=== PATIENT | female | born 1995 | race Caucasian/White ===

== ENCOUNTER 2017-03-15 20:27 | Emergency (ER) | payer BC ==
[~2017-03-15] VITALS: Ht 162.6 cm; Wt 57.3 kg
[2017-03-15 20:31] VITALS: BP 118/63; TEMP 97.8; O2SAT 98
[2017-03-15] MEDS ORDERED: SODIUM CHLOR 0.9% 1000 ML INJ 1,000 ML IV SCH (20:43)
[2017-03-15] MEDS ORDERED: SODIUM CHLORIDE 0.9% FLUSH 10 ML FLUSH IV FLUSH PRN (20:45)
--- NOTE | 2017-03-15 20:47 | PD ---
HPI Chief Complaint: Related Problem Time Seen by Provider: 20:43 Travel History International Travel<30 days: No Contact w/Intl Traveler<30days: No Traveled to known affect area: No History of Present Illness HPI 21-year-old female approximately 5 weeks , LMP February 05, here for evaluation of abdominal pain, nausea, vomiting, and diarrhea. Symptoms started earlier today. She is also having some generalized malaise. Abdominal pain is lower, cramping, intermittent. Currently she has no abdominal pain. She denies vaginal bleeding or discharge. She has an appointment with patient's librarian Dr. Jeffers for when she is 10 weeks . She has not yet had an ultrasound to confirm an IUP. She is feeling somewhat improved after having 3 episodes of vomiting today. [facility] Past Medical History ?: LMP: 02-05-17 Social History Tobacco Use: No Allergies-Medications (Allergen,Severity, Reaction): Coded Allergies: No Known Allergies (Unverified , 03/15/17) Reported Meds & Prescriptions Reported Meds & Active Scripts Active Reglan (Metoclopramide HCl) 5 Mg Tab 5 Mg PO BID Macrobid (Nitrofurantoin Monoh/Nitrofur Macro) 100 Mg Cap 100 Mg PO BID 5 Days Review of Systems Except as stated in HPI: all other systems reviewed are Neg Physical Exam Narrative GENERAL: Well-developed, well-nourished, comfortable, no acute distress. SKIN: Focused skin assessment warm/dry. No rash. HEAD: Atraumatic. Normocephalic. EYES: Pupils equal and round. No scleral icterus. No injection or drainage. ENT: Mucous membranes pink and dry. NECK: Trachea midline. No JVD. CARDIOVASCULAR: Regular rate and rhythm. RESPIRATORY: No accessory muscle use. Clear to auscultation. Breath sounds equal bilaterally. GASTROINTESTINAL: Abdomen soft, nondistended. Mild suprapubic and epigastric tenderness without peritoneal signs. Negative Coelho sign. No tenderness over McBurney's point. The rest of abdomen is soft and nontender. Normal bowel sounds. MUSCULOSKELETAL: No obvious deformities. No clubbing. No cyanosis. No edema. NEUROLOGICAL: Awake and alert. No obvious cranial nerve deficits. Motor grossly within normal limits. Normal speech. PSYCHIATRIC: Appropriate mood and affect; insight and judgment normal. Data Data Last Documented VS Vital Signs Date Time Temp Pulse Resp B/P Pulse Ox O2 Delivery O2 Flow Rate FiO2 03/15/17 23:04 90 18 98 03/15/17 22:34 100/56 Room Air 03/15/17 20:31 97.8 Orders Beta Hcg (Quant/Titer) (03/15/17 20:43) Complete Blood Count With Diff (03/15/17 20:43) Comprehensive Metabolic Panel (03/15/17 20:43) Lipase (03/15/17 20:43) Prothrombin Time / Inr (Pt) (03/15/17 20:43) Act Partial Throm Time (Ptt) (03/15/17 20:43) Urinalysis - C+S If Indicated (03/15/17 20:43) Iv Access Insert/Monitor (03/15/17 20:43) Ecg Monitoring (03/15/17 20:43) Oximetry (03/15/17 20:43) Sodium Chlor 0.9% 1000 Ml Inj (Ns 1000 M (03/15/17 20:43) Sodium Chloride 0.9% Flush (Ns Flush) (03/15/17 20:45) Ed Urine Pregnancytest Poc (03/15/17 20:43) Type And Screen (03/15/17 20:43) Urine Culture (03/15/17 21:15) Us Pelvis (Ques Pr/Ect)W Trans (03/15/17 ) Sodium Chlor 0.9% 1000 Ml Inj (Ns 1000 M (03/15/17 22:30) Metoclopramide Inj (Reglan Inj) (03/15/17 22:30) Nitrofurantoin Monohyd Macrocr (Macrobid (03/15/17 22:30) Labs Laboratory Tests Test 03/15/17 21:15 White Blood Count 10.3 TH/MM3 Red Blood Count 5.12 MIL/MM3 Hemoglobin 15.6 GM/DL Hematocrit 46.1 % Mean Corpuscular Volume 89.9 FL Mean Corpuscular Hemoglobin 30.4 PG Mean Corpuscular Hemoglobin 33.8 % Concent Red Cell Distribution Width 11.3 % Platelet Count 192 TH/MM3 Mean Platelet Volume 8.3 FL Neutrophils (%) (Auto) 88.4 % Lymphocytes (%) (Auto) 5.2 % Monocytes (%) (Auto) 4.6 % Eosinophils (%) (Auto) 0.5 % Basophils (%) (Auto) 1.3 % Neutrophils # (Auto) 9.1 TH/MM3 Lymphocytes # (Auto) 0.5 TH/MM3 Monocytes # (Auto) 0.5 TH/MM3 Eosinophils # (Auto) 0.1 TH/MM3 Basophils # (Auto) 0.1 TH/MM3 CBC Comment DIFF FINAL Differential Comment Prothrombin Time 10.9 SEC Prothromb Time International 1.0 RATIO Ratio Activated Partial 26.7 SEC Thromboplast Time Urine Color YELLOW Urine Turbidity SLIGHT Urine pH 5.5 Urine Specific [place] 1.024 Urine Protein NEG mg/dL Urine Glucose (UA) NEG mg/dL Urine Ketones 80 OR GREATER mg/dL Urine Occult Blood NEG Urine Nitrite NEG Urine Bilirubin NEG Urine Leukocyte Esterase NEG Urine WBC 0-2 /hpf Urine Squamous Epithelial 6-8 /hpf Cells Urine Bacteria MOD /hpf Urine Mucus MANY /lpf Microscopic Urinalysis Comment CULTURE INDICATED Sodium Level 140 MEQ/L Potassium Level 3.6 MEQ/L Chloride Level 106 MEQ/L Carbon Dioxide Level 23.8 MEQ/L Anion Gap 10 MEQ/L Blood Urea Nitrogen 10 MG/DL Creatinine 0.65 MG/DL Estimat Glomerular Filtration 114 ML/MIN Rate Random Glucose 89 MG/DL Calcium Level 9.0 MG/DL Total Bilirubin 0.6 MG/DL Aspartate Amino Transf 19 U/L (AST/SGOT) Alanine Aminotransferase 25 U/L (ALT/SGPT) Alkaline Phosphatase 53 U/L Total Protein 8.0 GM/DL Albumin 4.3 GM/DL Lipase 138 U/L Human Chorionic Gonadotropin, [address] MIU/ML Quant Blood Type O POSITIVE Antibody Screen NEGATIVE Blood Bank Comment [facility] Medical Decision Making Medical Screen Exam Complete: Yes Emergency Medical Condition: Yes Differential Diagnosis , ectopic , gastroenteritis, dehydration, UTI, cystitis, appendicitis less likely Narrative Course Initial vital signs show heart rate 113, blood pressure 118/63, pulse ox 98% on room air, oral temp of 97.8F. Repeat heart rate after a liter of normal saline IV was 90. CBC shows WBC 10.3, hemoglobin 15.6, hematocrit 46.1, platelets 192, neutrophils 88.4%. CMP is unremarkable. Lipase is 138. Beta hCG is 12,022. UA shows 80 years greater ketones, 8 squamous epithelial cells, moderate bacteria, many mucus, culture indicated. Patient will be started on Macrobid. Pelvic ultrasound: CONCLUSION: 1. Intrauterine with gestational age 5 weeks 6 days by crown-rump length and 5 weeks 3 days by gestational sac size. No heart rate identified at this time. Followup ultrasound recommended. 2. Trace free fluid. Probable corpus luteum cyst left ovary. Patient was made aware of all findings. She was given 2 L of normal saline IV and 5 mg of Reglan IV. She is feeling a lot better. I do not believe she has an acute intra-abdominal surgical process to warrant imaging at this time. She had [place] food yesterday, and is likely gave her gastroenteritis. She was provided a copy of her pelvic ultrasound report. She will be started on Macrobid for bacteriuria in . She is stable for discharge home with outpatient follow-up. She has an appointment with an DIRECTOR RELIGIOUS EDUCATION doctor in a few weeks. She was informed on when to return to the emergency department. She verbalizes understanding and agreement with plan. Diagnosis Primary Impression: Qualified Code: Z3A.01 - Less than 8 weeks gestation of Additional Impression: Bacteriuria during Referrals: Handle Assembler 1 week Primary Care Physician 3 days Additional Instructions: Follow-up with your primary care physician this week. Follow-up with your DIRECTOR RELIGIOUS EDUCATION doctor as scheduled. See hydrated with plenty of fluids. Return to the emergency department for worsening symptoms or any other concerns. Scripts Metoclopramide (Reglan)5 Mg Tab5 Mg PO BID #15 TAB Ref 0 Prov:Abraham Samayoa MD 03/15/17 Nitrofurantoin Monohydrate Macrocrystals (Macrobid)100 Mg [id number] Mg PO BID 5 Days Ref 0 Prov:Abraham Samayoa MD 03/15/17 Disposition: 01 DISCHARGE HOME Condition: Stable Abraham Samayoa MD Mar 15, 2017 20:46
[2017-03-15 20:48] VITALS: RESP 18; O2SAT 98
[2017-03-15 21:25] VITALS: BP 95/54; PULSE 90; RESP 18; O2SAT 98
[2017-03-15 21:34] LABS: AUTOMATED NEUTROPHIL # 9.1 TH/MM3 (1.8-7.7); BASOPHIL # 0.1 TH/MM3 (0-0.2); BASOPHIL % 1.3 % (0.0-2.0); EOSINOPHIL # 0.1 TH/MM3 (0-0.4); EOSINOPHIL % 0.5 % (0.0-4.0); HEMATOCRIT 46.1 % (35.0-46.0); HEMO FLAGS DIFF FINAL; LYMPH % 5.2 % (9.0-44.0); LYMPHOCYTE # 0.5 TH/MM3 (1.0-4.8); MEAN CELL VOLUME 89.9 FL (80.0-100.0); MEAN CORPUSCULAR HEMOGLOBIN 30.4 PG (27.0-34.0); MEAN CORPUSCULAR HGB CONC 33.8 % (32.0-36.0); MONO % 4.6 % (0.0-8.0); NEUT % 88.4 % (16.0-70.0); PLATELET COUNT 192 TH/MM3 (150-450); RED BLOOD COUNT 5.12 MIL/MM3 (4.00-5.30); RED CELL DISTRIBUTION WIDTH 11.3 % (11.6-17.2); WHITE BLOOD COUNT 10.3 TH/MM3 (4.0-11.0)
[2017-03-15 21:44] LABS: CHLORIDE 106 MEQ/L (98-107); POTASSIUM 3.6 MEQ/L (3.5-5.1); SODIUM (NA) 140 MEQ/L (136-145)
[2017-03-15 21:45] LABS: BLOOD, URINE NEG (NEG); GLUCOSE,URINE NEG (NEG); NITRITE,URINE NEG (NEG); PH, URINE 5.5 (5.0-8.5)
[2017-03-15 21:48] LABS: ANION GAP 10 MEQ/L (5-15); BICARBONATE 23.8 MEQ/L (21.0-32.0); BLOOD UREA NITROGEN 10 MG/DL (7-18)
[2017-03-15 21:51] LABS: ALT (GPT) 25 U/L (10-53); AST (GOT) 19 U/L (15-37); GLOMERULAR FILTRATION RATE 114 ML/MIN (>89)
[2017-03-15 21:52] LABS: TOTAL BILIRUBIN ADULT 0.6 MG/DL (0.2-1.0)
[2017-03-15 21:53] LABS: ALKALINE PHOSPHATASE 53 U/L (45-117); KETONE, URINE 80 OR GREATER mg/dL (NEG)
[2017-03-15 21:57] LABS: APTT (PATIENT) 26.7 SEC (24.3-30.1); MUCUS URINE MANY /lpf (OCC); PROTHROMBIN TIME - PATIENT 10.9 SEC (9.8-11.6); URINE COLOR YELLOW (YELLW/STRAW)
[2017-03-15 21:58] LABS: BACTERIA, URINE MOD /hpf; COMMENT (UR) CULTURE INDICATED; CULTURE IF INDICATED CULTURE INDICATED; WBC, URINE 0-2 /hpf (0-5)
[2017-03-15 22:08] LABS: BETA HCG QUANT 12022 MIU/ML (0-5)
[2017-03-15] MEDS ORDERED: SODIUM CHLOR 0.9% 1000 ML INJ 1,000 ML IV ONE (22:30)
[2017-03-15] MEDS ORDERED: METOCLOPRAMIDE HCL 10 MG/2 ML VIAL IV PUSH ONE (22:30)
[2017-03-15] MEDS ORDERED: NITROFURANTOIN MONOHYD MACROCR 100 MG CAP PO ONE (22:30)
[2017-03-15 22:34] VITALS: BP 100/56; PULSE 90; RESP 18; O2SAT 98
--- NOTE | 2017-03-15 22:47 | RADHPO ---
EXAM DATE/TIME: 03/15/2017 21:31 [place] COMPARISON: No previous studies available for comparison. INDICATIONS : Pelvic pain, nausea and vomiting. LAB(S): Beta-hC MEDICAL HISTORY : . Nausea. Vomiting. SURGICAL HISTORY : None. ENCOUNTER: Initial ACUITY: 1 day PAIN SCORE: 6/10 LOCATION: Bilateral pelvis MEASUREMENTS: UTERUS: 9.0 x 6.3 x 4.1 cm ENDOMETRIAL STRIPE: 17 mm RIGHT OVARY: 2.7 x 1.9 x 1.4 cm LEFT OVARY: 2.8 x 2.5 x 2.0 cm FREE FLUID: Yes Trace in posterior cul de sac. CROWN RUMP LENGTH: 0.3 cm = 5 WKS 6 DAYS FHR: Non visualized. BPM FINDINGS: Intrauterine is present with the crown-rump length characteristic of a 5 week 6 day gestati onal age. Yolk sac present. No heart rate identified. Right ovary unremarkable. Probable 2 cm corpus luteum cyst left ovary. Trace free fluid. CONCLUSION: 1. Intrauterine with gestational age 5 weeks 6 days by crown-rump length and 5 weeks 3 days by gestational sac size. No heart rate identified at this time. Followup ultrasound recommende d. 2. Trace free fluid. Probable corpus luteum cyst left ovary. Salvatore Gamez MD on March 15, 2017 at 22:42 Board Certified Radiologist. This report was verified electronically.
[2017-03-15] MEDS ORDERED: REGL5TAB PO (23:01)
[2017-03-15] MEDS ORDERED: MACR100C2 PO (23:01)
== END 2017-03-15 23:11 | disposition home or self-care (01) ==
LOC: PHED 20:27
DX: O26.891 Other specified pregnancy related conditions, first trimester (principal); R82.71 Bacteriuria; R19.7 Diarrhea, unspecified; R53.81 Other malaise; O21.9 Vomiting of pregnancy, unspecified; Z3A.01 Less than 8 weeks gestation of pregnancy
CPT/HCPCS: 76700; 76817; 80053; 81001; 83690; 84702; 84703; 85025; 85610; 85730; 86850; 86900; 86901; 87086; 96361; 96374; 99285; J2765; J7030

== ENCOUNTER 2017-05-07 12:23 | Emergency (ER) | payer BC ==
[~2017-05-07] VITALS: Ht 162.6 cm; Wt 57.0 kg
[~2017-05-07 12:23] MED LIST: MACR100C2 PO; REGL5TAB PO
[2017-05-07 12:26] VITALS: BP 124/57; PULSE 82; RESP 16; TEMP 97.1; O2SAT 99
[2017-05-07] MEDS ORDERED: PREN29TA PO (13:01)
[2017-05-07] MEDS ORDERED: SODIUM CHLOR 0.9% 1000 ML INJ 1,000 ML IV ONE (13:15)
[2017-05-07 13:19] LABS: AUTOMATED NEUTROPHIL # 5.6 TH/MM3 (1.8-7.7); BASOPHIL % 0.3 % (0.0-2.0); EOSINOPHIL # 0.1 TH/MM3 (0-0.4); EOSINOPHIL % 1.2 % (0.0-4.0); LYMPH % 17.3 % (9.0-44.0); LYMPHOCYTE # 1.3 TH/MM3 (1.0-4.8); MEAN CELL VOLUME 89.6 FL (80.0-100.0); MEAN CORPUSCULAR HGB CONC 33.5 % (32.0-36.0); MONO % 4.7 % (0.0-8.0); NEUT % 76.5 % (16.0-70.0); PLATELET COUNT 170 TH/MM3 (150-450); RED BLOOD COUNT 4.24 MIL/MM3 (4.00-5.30); RED CELL DISTRIBUTION WIDTH 12.3 % (11.6-17.2); WHITE BLOOD COUNT 7.3 TH/MM3 (4.0-11.0)
[2017-05-07 13:20] LABS: BLOOD, URINE LARGE (NEG); GLUCOSE,URINE NEG (NEG); KETONE, URINE NEG (NEG); NITRITE,URINE NEG (NEG)
[2017-05-07 13:20] LABS: HEMO FLAGS DIFF FINAL
[2017-05-07 13:23] LABS: URINE COLOR STRAW (YELLW/STRAW)
[2017-05-07 13:24] LABS: COMMENT (UR) CULT NOT INDICATED; CULTURE IF INDICATED CULT NOT INDICATED; SQUAMOUS EPITHELIAL CELL URINE 0-5 /hpf (0-5)
[2017-05-07 13:27] LABS: CHLORIDE 106 MEQ/L (98-107); POTASSIUM 3.5 MEQ/L (3.5-5.1); SODIUM (NA) 138 MEQ/L (136-145)
[2017-05-07 13:32] LABS: ANION GAP 8 MEQ/L (5-15); BLOOD UREA NITROGEN 5 MG/DL (7-18)
[2017-05-07 13:35] LABS: ALT (GPT) 15 U/L (10-53); AST (GOT) 16 U/L (15-37); GLOMERULAR FILTRATION RATE 174 ML/MIN (>89)
[2017-05-07 13:37] LABS: TOTAL BILIRUBIN ADULT 0.3 MG/DL (0.2-1.0)
[2017-05-07 13:38] LABS: ALKALINE PHOSPHATASE 41 U/L (45-117)
--- NOTE | 2017-05-07 13:46 | PD ---
HPI Chief Complaint: Related Problem Time Seen by Provider: 12:52 Travel History International Travel<30 days: No Contact w/Intl Traveler<30days: No Traveled to known affect area: No History of Present Illness HPI Patient is a 21-year-old female, 13 weeks , who comes in after an episode of vaginal bleeding. She says that she had bleeding this morning, as one episode, but it seemed like a lot of blood. She says since then it has slowed down. She denies any clots or passage of tissues. She said she's had some lower abdominal cramping. She denies any dysuria. She has seen her SCALLOP CUTTER , who has said that everything was fine at the , a few weeks ago. This is her first . She denies fever or chills. PFSH Past Medical History Diminished Hearing: No ?: LMP: 13 WEEKS Past Surgical History Tonsillectomy: Yes Social History Alcohol Use: No Tobacco Use: No Substance Use: No Allergies-Medications (Allergen,Severity, Reaction): Coded Allergies: No Known Allergies (Unverified , 05/07/17) Reported Meds & Prescriptions Reported Meds & Active Scripts Active Reported Plus Iron 29-1 mg ( Vit-Iron Carbonyl) 1 Tab Tab 1 Tab PO DAILY Review of Systems Except as stated in HPI: all other systems reviewed are Neg General / Constitutional: No: Fever, Chills Eyes: No: Blurred Vision HENT: No: Headaches, Lightheadedness Cardiovascular: No: Chest Pain or Discomfort Respiratory: No: Shortness of Breath Gastrointestinal: Positive: Abdominal Pain, No: Nausea, Vomiting Genitourinary: Positive: Vaginal Bleeding Musculoskeletal: No: Edema Skin: No Rash, No Change in Pigmentation Neurologic: No: Weakness, Dizziness Physical Exam Narrative GENERAL: Awake and alert, in no acute distress. SKIN: Focused skin assessment warm/dry. HEAD: Atraumatic. Normocephalic. EYES: Pupils equal and round. No scleral icterus. ENT: Mucous membranes pink and moist. NECK: Trachea midline. No JVD. CARDIOVASCULAR: Regular rate and rhythm. No murmur appreciated. RESPIRATORY: No accessory muscle use. Clear to auscultation. Breath sounds equal bilaterally. GASTROINTESTINAL: Abdomen soft, non-tender, nondistended. : Exam performed in the presence of a female nurse. Blood present in the vaginal vault. Minimal blood coming from the cervical os. No cervical lesions. Os is closed. MUSCULOSKELETAL: No obvious deformities. No clubbing. No cyanosis. No edema. NEUROLOGICAL: Awake and alert. No obvious cranial nerve deficits. Motor grossly within normal limits. Normal speech. PSYCHIATRIC: Appropriate mood and affect; insight and judgment normal. Data Data Last Documented VS Vital Signs Date Time Temp Pulse Resp B/P Pulse Ox O2 Delivery O2 Flow Rate FiO2 05/07/17 12:26 97.1 82 16 124/57 99 Orders Ed Poc Ultrasound (05/07/17 ) Complete Blood Count With Diff (05/07/17 13:03) Comprehensive Metabolic Panel (05/07/17 13:03) Urinalysis - C+S If Indicated (05/07/17 13:03) Iv Access Insert/Monitor (05/07/17 13:03) Sodium Chlor 0.9% 1000 Ml Inj (Ns 1000 M (05/07/17 13:15) Labs Laboratory Tests Test 05/07/17 05/07/17 13:05 13:09 White Blood Count 7.3 TH/MM3 Red Blood Count 4.24 MIL/MM3 Hemoglobin 12.7 GM/DL Hematocrit 38.0 % Mean Corpuscular Volume 89.6 FL Mean Corpuscular Hemoglobin 30.0 PG Mean Corpuscular Hemoglobin 33.5 % Concent Red Cell Distribution Width 12.3 % Platelet Count 170 TH/MM3 Mean Platelet Volume 8.4 FL Neutrophils (%) (Auto) 76.5 % Lymphocytes (%) (Auto) 17.3 % Monocytes (%) (Auto) 4.7 % Eosinophils (%) (Auto) 1.2 % Basophils (%) (Auto) 0.3 % Neutrophils # (Auto) 5.6 TH/MM3 Lymphocytes # (Auto) 1.3 TH/MM3 Monocytes # (Auto) 0.3 TH/MM3 Eosinophils # (Auto) 0.1 TH/MM3 Basophils # (Auto) 0.0 TH/MM3 CBC Comment DIFF FINAL Differential Comment Sodium Level 138 MEQ/L Potassium Level 3.5 MEQ/L Chloride Level 106 MEQ/L Carbon Dioxide Level 24.0 MEQ/L Anion Gap 8 MEQ/L Blood Urea Nitrogen 5 MG/DL Creatinine 0.45 MG/DL Estimat Glomerular Filtration 174 ML/MIN Rate Random Glucose 80 MG/DL Calcium Level 9.6 MG/DL Total Bilirubin 0.3 MG/DL Aspartate Amino Transf 16 U/L (AST/SGOT) Alanine Aminotransferase 15 U/L (ALT/SGPT) Alkaline Phosphatase 41 U/L Total Protein 6.8 GM/DL Albumin 3.5 GM/DL Urine Color STRAW Urine Turbidity CLEAR Urine pH 6.0 Urine Specific [place] 1.005 Urine Protein NEG mg/dL Urine Glucose (UA) NEG mg/dL Urine Ketones NEG mg/dL Urine Occult Blood LARGE Urine Nitrite NEG Urine Bilirubin NEG Urine Leukocyte Esterase NEG Urine RBC 4-9 /hpf Urine Squamous Epithelial 0-5 /hpf Cells Microscopic Urinalysis Comment CULT NOT INDICATED MDM Medical Decision Making Medical Screen Exam Complete: Yes Emergency Medical Condition: Yes Medical Record Reviewed: Yes Differential Diagnosis That miscarriage versus completed miscarriage versus UTI Narrative Course Patient is a 21-year-old female who comes in after an episode of vaginal bleeding. Exam shows blood in the vaginal vault, cervical os is closed. Patient has blood type O+. IV established, labs sent. Labs show no acute abnormalities. Urinalysis is negative for UTI or bacteria. Patient given IV fluids. Bedside ultrasound performed shows an IUP. Fetus is active with a heart beat. Mom reassured. She is advised to practice pelvic rest. Advised follow-up with her political geographer. Advised to return to the emergency department as needed for any worsening symptoms. Procedures Procedure Narrative Emergency Department Pelvic ultrasound was performed with patient consent. The curvilinear probe was used in the transverse and sagittal views within the suprapubic region revealing single intrauterine . heart rate was 158. Fetus is active, moving frequently Diagnosis Primary Impression: Threatened Patient Instructions: General Instructions, Threatened Miscarriage (ED) Additional Instructions: Follow-up with your political geographer. Practice pelvic rest (abstain from sexual activity for the next 2 weeks). Drink plenty of fluids. Return to the emergency department as needed for any worsening symptoms. Disposition: 01 DISCHARGE HOME Condition: Stable Jazmine Steve MD May 07, 2017 13:46
== END 2017-05-07 14:33 | disposition home or self-care (01) ==
LOC: PHED 12:23
DX: O20.0 Threatened abortion (principal); Z3A.13 13 weeks gestation of pregnancy
CPT/HCPCS: 80053; 81001; 85025; 96360; 99284; J7030